=== PATIENT | female | born 1995 | race Caucasian/White ===

== ENCOUNTER 2021-12-29 08:21 | Outpatient (CLI) | payer OTHER, SELFPAY ==
--- NOTE | 2021-12-29 08:45 | CRLHL7_ITS ---
For Patients: As a result of the Century Cures Act, medical imaging exams and procedure reports are released immediately into your electronic medical record. You may view this report before your referring provider. If you have questions, please contact your health care provider. INDICATION: Evaluate anatomy. COMPARISON: 10/23/2021, 09/30/2021 TECHNIQUE: Real time koenig scale imaging of the fetus was performed as well as color Doppler analysis of the umbilical vessels. FINDINGS: Sonographic imaging demonstrates a single living intrauterine gestation. Fetus demonstrates a regular cardiac rate of 141 beats per minute. Fetus has a devon breech position. The placenta lies anteriorly. The edge of the placenta is located 12.5 cm from the internal cervical os. Amniotic fluid volume appears normal. Single deepest vertical pocket: 4.3 cm. The cervix is closed and measures 4.3 cm in length. The composite ultrasound gestational age is calculated at 20 weeks 3 days with an estimated sonographic due date of 05/15/2022. The estimated weight is 343 grams which lies at the 13th %. The following biometric measurements were obtained: Biparietal diameter: 4.6 cm/19 weeks 6 days 10th% Head circumference: 17.5 cm/20 weeks 0 days 8th% Abdominal circumference: 15.6 cm/20 weeks 5 days 34th% Femur length: 3.2 cm/19 weeks 6 days 9th% The HC/AC ratio measures: 1.12 Range (1.07-1.25) On anatomic survey, there is a normal appearance of the cerebral ventricles, cavum septi pellucidi, cisterna magna and cerebellum. The nose, lips, and facial profile appear normal. The cervical, thoracic and lumbar spine are well visualized and appear normal. There is a normal four-chamber heart view and the left and right ventricular outflow tracts appear normal. The diaphragm and stomach appear normal. The kidneys and bladder also appear normal. There is a normal three-vessel cord and there is an eccentric cord insertion site. The four extremities appear normal. IMPRESSION: Normal OB ultrasound exam with concordance of clinical and sonographic dating. No intrinsic abnormalities noted on anatomic survey. Dictated by Sushil Strong MD @ 12/29/2021 10:03:30 AM (Electronically Signed)
== END 2021-12-29 08:22 | disposition home or self-care (01) ==
LOC: US 08:22
PROVIDERS: PCP Physician Assistant Medical; Visit Provider Advanced Practice Midwife
DX: Z34.92 Encounter for supervision of normal pregnancy, unspecified, second trimester (principal); Z3A.20 20 weeks gestation of pregnancy
CPT/HCPCS: 76805

== ENCOUNTER 2022-03-04 20:43 | Outpatient (CLI) | payer OTHER, SELFPAY ==
[2022-03-06 20:38] LABS: Rapid Plasma Reagin (RPR) Non Reactive (Non Reactive)
== END 2022-03-04 20:44 | disposition home or self-care (01) ==
PROVIDERS: PCP Physician Assistant Medical; Visit Provider Advanced Practice Midwife
DX: Z34.90 Encounter for supervision of normal pregnancy, unspecified, unspecified trimester (principal)
CPT/HCPCS: 86592

== ENCOUNTER 2022-03-05 15:39 | Outpatient (CLI) | payer OTHER, SELFPAY ==
[2022-03-05 08:30] LABS: Glucose Fasting Check 72 mg/dl (60-115)
[2022-03-05 13:26] LABS: Glucose 1 Hour Gest 166 mg/dl (70-180)
[2022-03-05 13:26] LABS: Glucose GTT-Gestational 3 Hr 87 mg/dl (70-140)
== END 2022-03-05 15:40 | disposition home or self-care (01) ==
PROVIDERS: PCP Physician Assistant Medical; Visit Provider Advanced Practice Midwife
DX: Z34.90 Encounter for supervision of normal pregnancy, unspecified, unspecified trimester (principal)
CPT/HCPCS: 82951; 82952

== ENCOUNTER 2022-04-15 16:22 | Outpatient (CLI) | payer OTHER, SELFPAY ==
[2022-04-16 15:47] LABS: Strep B DNA Probe NEGATIVE (Negative)
[2022-04-18 15:43] LABS: Strep B Pen/Amox Allergy No
== END 2022-04-15 16:23 | disposition home or self-care (01) ==
LOC: NFLDREF 16:23
PROVIDERS: PCP Physician Assistant Medical; Visit Provider Advanced Practice Midwife
DX: Z34.83 Encounter for supervision of other normal pregnancy, third trimester (principal); Z3A.36 36 weeks gestation of pregnancy
CPT/HCPCS: 87081; 87653

== ENCOUNTER 2022-05-16 23:56 | Outpatient (CLI) | payer OTHER, SELFPAY ==
[2022-05-17 00:12] VITALS: BP 121/78; PULSE 79; RESP 16; TEMP 36.8; O2SAT 98
[2022-05-17 00:40] LABS: Amnisure Rom* Negative
--- NOTE | 2022-05-17 02:08 | PC.OBNST ---
NST Note NST Note Start: 05/17/22 00:09 Freq: ONCE Status: Active Protocol: Document 05/17/22 01:00 KAYE (Rec: 05/17/22 02:08 KAYE [id number]) NST Note 1 Para (# of births) 0 EDC 05/11/22 Gestational Age In Weeks & Days 40 Weeks & 6 Days Patient Presented with Complaint(s) of Leaking fluid Reactive Yes Appropriate for Gestational Age Yes HECTOR Mckeon RNC Date 05/17/22 Reactive Yes Appropriate for Gestational Age Yes HECTOR Daniels RN Date 05/17/22 OB NST charge Yes Complete NST Note via Write Note Yes The provider's electronic signature indicates the NST is reactive/appropriate for gestational age. *Note to provider: If an addendum is required, open the patient's chart and click on the note under the Nurse/Allied Health tab.
== END 2022-05-17 01:10 | disposition home or self-care (01) ==
LOC: OB OUT 23:57 → OB 23:58
PROVIDERS: PCP Physician Assistant Medical; Visit Provider Advanced Practice Midwife
DX: O47.1 False labor at or after 37 completed weeks of gestation (principal); Z3A.40 40 weeks gestation of pregnancy
CPT/HCPCS: 59025; 84112; 99213

== ENCOUNTER 2022-05-18 06:52 | Inpatient (IN) | payer OTHER, SELFPAY ==
[2022-05-18] VITALS (7 sets, daily range): BP systolic 108–127; BP diastolic 57–77; PULSE 74–96; RESP 16; TEMP 36.6–36.9; O2SAT 97–98; BMI 36.3
[2022-05-18] MEDS: miSOPROStoL 25 MCG/0.25 TABLET VAGINAL ×4 (08:37→20:55)
--- NOTE | 2022-05-18 08:37 | W.PM.LDBA ---
Subjective History of Present Illness Narrative: Patient is being admitted to Labor and Delivery for IOL at 41.0 weeks. She is a 26 year old at 41.0 weeks gestation. Her full history and physical was dictated by Joycelyn Hobbs CNM on 04/23/2022. Please see this for details. 1. BMI > 30 2. Large MARIBEL, follow-up US ordered Subchorionic hemorrhage measuring 1.5 x 1.4 x 5.2 cm Follow-up: measuring 2.8 centimeter x 1.0 centimeter x 4.0 cm Not noted on anatomy scan 3. Anxiety - Meds in college, not currently, PHQ 0/TARIK 3 @ NOB 4. Varicella non-immune, Recommend vaccine pp 5. Carpal Tunnel of , arms/hands Plans to try splinting them at night 6. Failed 1 hour gct 3 hour gct: passed OB - H&P: Exam Physical Exam: Vital signs: Temp Pulse BP Pulse Ox 98.4 F 78 127/69 98 05/18/22 07:15 05/18/22 07:26 05/18/22 07:26 05/18/22 07:24 Narrative: Vitals per EMR? Psychiatric:? Alert and oriented x3? HEENT:? Normocephalic, atraumatic? Neck:? Supple without adenopathy or thyromegaly? Lungs:? Clear to auscultation bilaterally? Heart:? Regular rate and rhythm, no murmur, rub or gallop? Abdomen:? Soft, nontender, and gravid? Extremities:? No edema or erythema? Pelvic:? SVE: 0cm/thick/high? Membrane status:? intact? presentation:? vertex by [place] ? FHT:? Moderate Variability.? Positive Accels.? No Decels. Baseline 130.? [place]:? Ctx Q7-12min per TOCO. Feel like lower abdomen cramping per pt report.? OB - Problem Based A/P Additional Plan (1) Encounter for induction of labor: Status: Acute (2) Normal first in third trimester: Status: Acute Plan ASSESSMENT:? at 41.0 weeks gestation? GBS negative? Uncomplicated ? Postterm IOL? ?? PLAN:? 1. Reviewed risks and benefits of IOL with Pitocin vs Cytotec. Pt prefers Cytotec. Pitocin to follow if needed.? 2. Candidate for analgesia of choice. Likely will desire an epidural. ? 3. Anticipate ? 4. Vaginal Cytotec every 4 hours? 5. IV placement for epidural or if condition changes per unit policy. 6. Intermittent monitoring per unit policy for Cytotec administration.? Delivery/Labor/Induction Plan Plan: induction Induction method: per misoprostol protocol
[2022-05-18 08:44] LABS: SARS PCR* Negative SARS-CoV-2 (Negative)
[2022-05-18 09:25] LABS: Basophils Absolute Auto 0.04 K/uL (0.00-0.30); Basophils Percent Auto 0.4 % (0.0-3.0); Eosinophils Absolute Auto 0.07 K/uL (0.00-0.50); Eosinophils Percent Auto 0.7 % (0.0-7.0); Hematocrit 38.8 % (33.0-51.0); Hemoglobin* 13.2 gm/dL (12.0-16.0); Immature Granulocytes Abs Auto 0.16 K/uL (0.00-0.30); Immature Granulocytes Pct Auto 1.7 %; Lymphocytes Percent Auto 17.9 % (20-44); Mean Corpuscular HGB Conc 34 gm/dL (32-36); Mean Corpuscular Hemoglobin 31 pg (26-34); Mean Corpuscular Volume 91 fL (80-100); Monocytes Percent Auto 7.8 % (0.0-11.0); Neutrophils Absolute Auto 6.77 K/uL (1.7-7.0); Neutrophils Percent Auto 71.5 % (42.0-72.0); Platelet Count* 193 K/uL (140-440); RDW Coefficient of Variation % 12.9 % (11.5-15.5); Red Blood Count 4.27 m/uL (4.00-5.20); White Blood Count* 9.48 K/uL (4.50-11.00)
[2022-05-18 09:26] LABS: Slide Review Reflex No
[2022-05-19] VITALS (62 sets, daily range): BP systolic 100–164; BP diastolic 50–84; PULSE 72–139; RESP 16–18; TEMP 36.5–37.2; O2SAT 93–100
[2022-05-19] MEDS: hydrOXYzine pamoate 25 MG CAPSULE 100 MG PO (01:24)
[2022-05-19] MEDS: MORPHINE 10 MG/ML inj IM (01:25)
[2022-05-19] MEDS: OXYTOCIN 30 unit/500 ML in NS 30 UNIT/500 ML BAG IVPB (06:12)
[2022-05-19] MEDS: LACTATED RINGERS 1000 ML 1,000 ML 125 ML IV ×2 (06:12→21:20)
--- NOTE | 2022-05-19 09:21 | PM.OBPNL ---
Subjective Time Seen by Provider: 09:00 Date Seen: 05/19/22 Narrative: Subjective:? Ramandeep is coping well with labor pain/contractions. She is currently being supported by her partner.?Reports concerns regarding: IOL feels like it is taking such a long time and wanting to meet her baby soon. Questions answered to her satisfaction. ?She would like to continue with nitrous oxide, position changes, and ambulation for comfort and pain management.?? Objective Exam: Objective: VSS, afebrile General Appearance:?Calm, cooperative. ?No acute distress. ? Psychiatric Exam: Alert and oriented, appropriate affect Abdomen: Gravid Ctx: ?Q 2-4 min apart. Mild FHTs: ?Baseline: 135 ? Variability: Moderate ? Accels: Present ? ?Decels: ?Absent SVE:deferred (/ @ 0024) Membranes: ?SROM X 9 hours Pitocin @?2 ?? Vital Signs: Last Vital Signs Temp 98.4 F 05/19/22 06:24 Pulse 81 05/19/22 09:14 Resp 16 05/19/22 06:24 BP 127/74 05/19/22 09:14 Pulse Ox 98 05/18/22 07:24 Plan Plan: Assessment:?? 26 at 41w 1d gestation?? Patient is coping well with challenges of labor/IOL.?? Labor type: Induced, Early labor? Category 1 FHR pattern.?? GBS Negative Plan:?? Continue with IOL per pitocin protocol and routine intrapartum cares as ordered.?? Patient encouraged to change positions to promote physiologic labor and .?? Candidate for analgesia of choice. Continue with Nitrous Oxide and Nonpharmacologic comfort measures per patient preference. Patient does not plan for waterbirth? Monitoring: continuous per protocol Anticipate progress to active labor and NVD. ?
[2022-05-19] MEDS: LACTATED RINGERS 1000 ML 1,000 ML 1200 ML IV ×2 (12:17→13:52)
[2022-05-19] MEDS: ROPIVACAINE 0.2% 100 ml 100 ML 12 MG EPIDURAL (12:28)
--- NOTE | 2022-05-19 12:37 | PM.ANBPRC ---
PFSH PFS Medical History History of trichotillomania Family History Mother Uterine cancer, Onset Age: 42 Social History Narrative: , non-tobacco user Smoking Status: Never smoker Meds Home Medications and Allergies Home Medications Medication Instructions Recorded Confirmed Type ferrous sulfate 325 mg (65 mg 325 mg PO QDAY 11/23/21 05/18/22 History iron) tablet omega 2-owi-lvd-fish oil 1,000 mg 1 cap PO QDAY 11/23/21 05/18/22 History (120 mg-180 mg) capsule (Fish Oil) prenat.vits,jazmine,ccp-ccxn-jbgyr 1 tab PO QDAY 11/23/21 05/18/22 History Allergies Allergy/AdvReac Type Severity Reaction Status Date / Time No Known Allergies Allergy Verified 05/19/22 01:19 Results Vital Signs Vital Signs: Last Vital Signs Temp 98.8 F 05/19/22 11:06 Pulse 110 H 05/19/22 12:35 Resp 16 05/19/22 11:06 BP 141/69 H 05/19/22 12:37 Pulse Ox 100 05/19/22 12:22 Weight: 89.981 kg Height: 157.48 cm Anesthesia Procedures Epidural Insertion Patient Location: OB Start Time: 12:15 Stop Time: 13:15 Start Date: 05/19/22 Stop Date: 05/19/22 Reason for Block: procedure for pain Patient Position: sitting Performed By: Moshe Angel Preanesthetic Checklist: IV checked, risks and benefits discussed, monitors and equipment checked, pre-op evaluation and anesthesia consent Prep: patient draped Monitoring: blood pressure monitoring, continuous pulse oximetry and heart rate Approach: midline Vertebral Space: lumbar (1-5) Epidural Technique: TISHA saline Needle Type: Tuohy needle Injection Technique: continuous catheter Needle gauge: 17 Needle Insertion Depth (cm): 6 Catheter Gauge: 19 Catheter Type: multi-orifice Catheter at skin depth (cm): 10 Test Dose Result: negative and lidocaine 1.5% with epinephrine 1 to 200,000
[2022-05-19] MEDS: PHENYLEPHRINE 100 MCG/ML SYRINGE IVP ×3 (14:08→14:52)
--- NOTE | 2022-05-19 16:03 | P.OBPN_ITS ---
Subjective Time Seen by Provider: 17:06 Date Seen: 05/19/22 Narrative: Subjective:? Ramandeep is coping well with labor pain/contractions, comfortable with epidural in bed in all 4s position with labor ball. She is currently being supported by her Forrest.?Discussed recurrent late decels and variables, how this indicates that the baby is not tolerating labor well, and that her cervix had made minimal change from 1.5 to 2cm and baby is still high and not close to delivery. E xplained options to try more position changes/turning off pit for a while, or to call MD to evaluate for . Ramandeep opted to call for a at this time, stated she wanted to make that decision while her baby was still ok and to have the safest option at this time. Questions elicited answered to Ramandeep & Forrest's satisfaction. ? ? Objective Exam: Objective: VSS, afebrile General Appearance:? Teary, tired, cooperative. ? Psychiatric Exam: Alert and oriented, appropriate affect Abdomen: Gravid Ctx: ?Q 2-4 min apart. Moderate FHTs: ?Baseline: 145 Variability: Moderate ? Accels: present ? ?Decels: ?occasional variables and repetitive late decels SVE: 2cm/50%/-3 Membranes:?SROM X 16 hours Pitocin @?12 ?? Vital Signs: Last Vital Signs Temp 99 F 05/19/22 15:03 Pulse 139 H 05/19/22 15:49 Resp 16 05/19/22 15:03 BP 138/67 05/19/22 15:49 Pulse Ox 100 05/19/22 12:22 Plan Plan: Assessment:?? 26 at 41w 1d gestation?? Patient is coping well with challenges of labor/IOL.?? Labor type: Induced, Early labor? Category 2 FHR pattern.?? GBS Negative Plan:?? Pitocin turned off Epidural for pain management Monitoring: continuous per protocol Dr. Shah called to evaluate for
--- NOTE | 2022-05-19 17:32 | PM.OBCN1 ---
OB - CN: HPI Date of Consult Time Seen by Provider: 17:32 Date Seen: 05/19/22 Patient: [facility] Patient Consult date: 05/19/22 Requesting Physician: Krystle Hobbs CNM Primary Care Provider: Rachel Aguila PA-C Consult Narrative Reason for consult: nonreassuring FHTs (repetitive late decelerations on pitocin 10 mu/min) Narrative: The patient is a 26 year old G 1 P 0 at 41 1/7 weeks gestation that was admitted to the Center on 05/18/22 for induction of labor. Her cerviz was unfavorable upon admission. She received misoprostol per protocol yesterday. She experienced spontaneous rupture of membranes around midnight, clear fluid. Pitocin augmentation of labor was initiated this morning. Has an epidural in place for pain control. Cervix was 2 cm/ 50%/ -3 station at most recent check. History of Present Dating criteria: based on LMP care: good care Ultrasounds: normal 1st trimester US and normal mid trimester US complications comment: See below. Medical Complications: OB Problem List: 1. BMI > 30 2. Large MARIBEL, follow-up US ordered Subchorionic hemorrhage measuring 1.5 x 1.4 x 5.2 cm Follow-up: measuring 2.8 centimeter x 1.0 centimeter x 4.0 cm Not noted on anatomy scan 3. Anxiety - Meds in college, not currently, PHQ 0/TARIK 3 @ NOB 4. Varicella non-immune, Recommend vaccine pp 5. Carpal Tunnel of , arms/hands Plans to try splinting them at night 6. Failed 1 hour gct 3 hour gct: passed History History 1 Elective abortions 0 Para 0 Spontaneous abortions 0 Hx # Term Pregnancies Ectopic pregnancies Hx # Pregnancies Multiple births Number of Living Children 0 Labs Blood type: O (+) positive Rubella: immune RPR/VDLR: nonreactive GBS status: negative HBsAG: negative OB Labs: Lab Assessment Start: 05/18/22 07:21 Freq: ONCE Status: Complete Protocol: PC.OBGBS Activity Type Activity Date Activity User E-sign Co-sign Detail Recorded Client Recorded Date Recorded By Document 05/18/22 07:30 BAPTISM [id number] 05/18/22 07:33 BAPTISM 05/18/22 07:30 Lab Assessment GBS negative Previous [place] with Invasive GBS No Does Patient Meet Criteria No No Treatment Needed OK Maternal Blood Type O Maternal RH Factor Positive Evaluate Maternal Rubella Immune Status Immune Hepatitis B Surface Antigen Negative Maternal HIV Status Negative Maternal Syphillis (RPR) Status Negative Are Labs Available Yes PFSH PFS Medical History History of trichotillomania Family History Mother Uterine cancer, Onset Age: 42 Social History Narrative: , non-tobacco user Smoking Status: Never smoker Meds Home Medications and Allergies Home Medications Medication Instructions Recorded Confirmed Type ferrous sulfate 325 mg (65 mg 325 mg PO QDAY 11/23/21 05/18/22 History iron) tablet omega 3-hdp-ios-fish oil 1,000 mg 1 cap PO QDAY 11/23/21 05/18/22 History (120 mg-180 mg) capsule (Fish Oil) prenat.vits,jazmine,awi-gyik-qpomr 1 tab PO QDAY 11/23/21 05/18/22 History Allergies Allergy/AdvReac Type Severity Reaction Status Date / Time No Known Allergies Allergy Verified 05/19/22 01:19 OB - H&P: Exam Physical Exam: Vital signs: Temp Pulse Resp BP Pulse Ox 99 F 129 H 16 164/84 H 100 05/19/22 15:03 05/19/22 17:19 05/19/22 15:03 05/19/22 17:19 05/19/22 12:22 Constitutional: Constitutional: no acute distress Comments: On hand/knees with beanbag Routine HEENT Exam: Head: Present normal inspection Routine Respiratory Exam: Respiratory: Absent respiratory distress Routine Cardiovascular Exam: Cardiovascular: RRR Detailed Labor and Delivery Exam: Patient Gravid: yes Dilation (cm): 2 Effacement (%): 50 Cervix position: mid Consistency: medium Contraction frequency (min): 4 Contraction duration (sec): 60 Tachysystole: No Contraction intensity: Moderate Comments: Pitocin infusion currently off. Fetus (Single): Station: -3 Amniotic Membrane Status: SROM Amniotic Membrane Fluid Description: Clear Heart Rate Baseline: 135 Monitor Decelerations: Late (repetitive) [facility] Variability: Minimal (3-5) Routine Neurological Exam: Present alert and oriented X3 OB - CN: A/P Assessment and Plan (1) Encounter for induction of labor: Status: Acute (2) Normal first in third trimester: Status: Acute (3) Non-reassuring heart rate with late deceleration: Status: Acute Plan Discussed situation with the patient. Recommend proceeding with delivery. Informed consent obtained for section, risks reviewed include, but are not limited to, infection, bleeding, blood transfusion, injury to other organs or infant, extended hospital stay and postoperative pain medications. O.R. team aware.
[2022-05-19] MEDS: CEFAZOLIN 2 GM INJ IVP (18:06)
--- NOTE | 2022-05-19 18:49 | SUR.OPER ---
Doctor declined to send specimen.
--- NOTE | 2022-05-19 19:00 | PM.OBPRCCS ---
Procedure Pre-op/Post-op diagnoses: Pre-Op/Post-Op Diagnoses Operation Date: 05/19/22 18:15 <No data on this case meets the specified criteria> Procedure Done: Global Procedure Details: Procedures Operation Date: 05/19/22 18:15 Actual Procedure Side Surgeon p Section Angela Shah MD Estimated blood loss (mL): 310 Disposition: floor Anesthesia type: TAP block Complications: None. Narrative: PREOPERATIVE DIAGNOSES: 1. Intrauterine at 41 1/7 weeks' gestation. 2. intolerance of labor. POSTOPERATIVE DIAGNOSES: 1. Intrauterine at 41 1/7 weeks' gestation. 2. intolerance of labor. NAME OF PROCEDURE: Primary low transverse section. SURGEON: Pablo. ANESTHESIA: Epidural. Tap block. COMPLICATIONS: None. ESTIMATED BLOOD LOSS: 310 mL. DRAINS: Dodd to gravity. FINDINGS: Live-born female infant, cephalic presentation, occiput posterior position, Apgars 8 and 9 at 1 and 5 minutes respectively. weight 6 lb 13 oz. thin umbilical cord. Normal appearing uterus, tubes, and ovaries. PROCEDURE: After obtaining informed consent, the patient was taken to the operating room where spinal anesthesia was obtained and found to be adequate. She was prepared and draped in the normal sterile fashion in the dorsal supine position with a leftward tilt. A Pfannenstiel skin incision was made with a scalpel. This incision was carried down to the underlying layer of fascia with the Bovie. The fascia was incised in the midline and the incision extended laterally. The superior and inferior aspects of the fascial incision were grasped with Obed clamps, elevated and the underlying rectus muscles dissected off sharply and with electrocautery. The rectus muscles were then in the midline. The Alvin O retractor was then placed into the incision. The lower uterine segment was then incised in a transverse fashion with the scalpel. Upon entry into the uterus, clear amniotic fluid was noted. The uterine incision was extended laterally with blunt finger fractionation. The 's head was delivered atraumatically, followed by the remainder of the 's body. The nose and mouth were suctioned with the bulb suction. The cord was doubly clamped and cut, and the was handed off the field for evaluation. The placenta was delivered spontaneously with umbilical cord traction and fundal massage. The uterus was cleared of all clots and debris. The uterine incision was reapproximated in a running locking fashion with a 0 chromic suture. A 2nd layer of the same suture was used to imbricate in horizontal fashion. The gutters were irrigated and suctioned. All instruments and retractors were removed. The anterior peritoneum was reapproximated in a running fashion with a 3-0 Vicryl suture. The subfascial tissues were carefully inspected and hemostasis assured. The fascia was reapproximated in a running fashion with a looped 0 Maxon suture. The subcutaneous tissues were copiously irrigated. Hemostasis was assured. The skin was closed in a subcuticular fashion with 4-0 Vicryl. LiquiBand and dressing were applied. The patient tolerated the procedure well. Sponge, lap, needle, and instrument counts were reported as correct x2. The patient was taken to the recovery room, awake, and in stable condition. She did receive 2 grams of IV Ancef preoperatively. OB Delivery Proc Additional Procedures Tubal Ligation at the time of : No
--- NOTE | 2022-05-19 19:26 | W.PM.NB ---
Nerve Block Nerve Block Time Seen by Provider: 19:00 Date Seen: 05/19/22 Type of block requested by surgeon for post-operative analgesia: TAP Side: bilateral Time out performed: Yes Verification of patient name: Yes Verification of date of : Yes Name of person performing procedure: MEG beltran Continuous monitoring Was continuous monitoring of O2 sat, B/P, air sampling and monitoring, recorded every 15 minutes?: Yes Procedure Checklist: sterile prep, needles and gloves Ultrasound guided. Images saved: Yes Medications given in 5ml increments after negative aspiration: Marcaine (30 total) %: 0.25 mL: 15 Needle gauge: 20 and Exparel (10 total) mL: 5 Needle gauge: 20 Patient tolerated procedure well: Yes Block Charges Block Charge (with Pro Fee): TAP Bilateral Use of Ultrasound Machine for Block: Yes- US Guidance/pain block
--- NOTE | 2022-05-19 20:20 | W.ANESCHARGE ---
Anesthesia Charges Start Date/Time Anesthesia Start Date: 05/19/22 Anesthesia Start Time: 17:59 Stop Date/Time Anesthesia Stop Date: 05/19/22 Anesthesia Stop Time: 19:19 Summary Emergency: Yes
[2022-05-20] VITALS (26 sets, daily range): BP systolic 105–133; BP diastolic 61–87; PULSE 74–85; RESP 16; TEMP 36.5–36.7; O2SAT 96–100
[2022-05-20] MEDS: KETOROLAC 30 MG/ML inj IVP ×4 (01:23→19:58)
[2022-05-20] MEDS: diphenhydrAMINE 50 MG/ML inj 12.5 MG IVP (01:52)
--- NOTE | 2022-05-20 07:12 | PM.OBPNL ---
Subjective Date Seen: 05/19/22 Narrative: Late documentation for 05/18/22 at 1600: Pt has received 2 doses of cytotec with the last dose being 50mg. It was decided after discussion with the patient to do a 50mg dose of cytotec after the first dose did not produce consistent or painful contractions. Tolerated well and is now annette more now but still comfortable with contractions. Will go back to 25mg for the next doses. She is due to get her next dose at 1630. Late documentation for 05/19/22 at 0545: Received notification from the RN that the pt SROM at 0024 with clear fluid. She was 1/50/-[address] It was decided at that time that we would hold the next dose of cytotec to see what her body would do as she was stating that the contractions were feeling more painful. She requested and received morphine and Vistaril shortly after SROM for sleep. Around 0500 her strip was reviewed and the contraction pattern was sporadic with contractions every 3-5 min but often coupling. The patient was feeling contractions and they were waking her up but she was still very tired from the Vistaril. Because of her contraction pattern and an unchanged SVE per RN exam, it was decided and the patient agreed to begin Pitocin. Position changes were encouraged to promote optimal position and improve her contraction pattern. The nurse was working with the patient to change positions in bed and will encourage upright positions once she is more awake. Objective Vital Signs: Last Vital Signs Temp 97.7 F 05/20/22 04:49 Pulse 78 05/20/22 04:49 Resp 16 05/20/22 06:28 BP 117/73 05/20/22 04:49 Pulse Ox 98 05/20/22 04:49 O2 Del Method 05/20/22 04:49 Contractions Contraction intensity: Moderate Assessment Station: -3 Amniotic Membrane Status: SROM Heart Rate Baseline: 135 Monitor Decelerations: Late (repetitive)
[2022-05-20 07:16] LABS: Hemoglobin* 11.4 gm/dL (12.0-16.0)
[2022-05-20] MEDS: DOCUSATE SODIUM 100 MG CAPSULE PO (07:16)
[2022-05-21] MEDS: ACETAMINOPHEN 500 MG TABLET 1000 MG PO ×2 (00:25→13:36)
[2022-05-21] MEDS: KETOROLAC 30 MG/ML inj IVP (03:19)
--- NOTE | 2022-05-21 08:28 | P.DS_ITS ---
DS: Providers Provider Date Seen: 05/21/22 Date of admission: 05/18/22 06:52 Primary care physician: Rachel Aguila PA-C Admitting Clinician: Kim Villarreal CNM Attending Physician on discharge: Melissa Flores CNM & GAYLE Stoll Date of Discharge: 05/21/22 DS: Diagnosis Discharge Diagnosis (1) care and examination immediately after delivery: Status: Acute (2) Delivery by section using transverse incision of lower segment of uterus: Status: Acute (3) Lactating mother: Status: Acute Exam Const: Vital Signs, click to edit/add: Vital Signs - 24 hr 05/20/22 09:10 05/20/22 09:00 05/20/22 10:00 Temperature 97.7 F Pulse Rate [Pulse Oximeter] 81 Respiratory Rate 16 16 16 Blood Pressure [Ri ght Arm] 111/76 Pulse Oximetry 99 Oxygen Delivery Me thod Room Air 05/20/22 13:26 05/20/22 16:19 05/20/22 18:11 Temperature 98.1 F Pulse Rate [Pulse Oximeter] 80 76 Respiratory Rate 16 16 16 Blood Pressure [Ri ght Arm] 117/74 123/87 Pulse Oximetry 96 96 Oxygen Delivery Me thod Room Air Room Air 05/20/22 17:00 05/20/22 16:00 05/20/22 15:00 Temperature Pulse Rate [Pulse Oximeter] Respiratory Rate 16 16 16 Blood Pressure [Ri ght Arm] Pulse Oximetry Oxygen Delivery Me thod 05/20/22 14:00 05/20/22 13:00 05/20/22 12:00 Temperature Pulse Rate [Pulse Oximeter] Respiratory Rate 16 16 16 Blood Pressure [Ri ght Arm] Pulse Oximetry Oxygen Delivery Me thod 05/20/22 11:00 05/20/22 19:52 05/20/22 23:58 Temperature Pulse Rate [Pulse Oximeter] 77 74 Respiratory Rate 16 16 16 Blood Pressure [Ri ght Arm] 105/61 130/80 Pulse Oximetry 97 97 Oxygen Delivery Me thod Room Air Room Air Documenting provider has reviewed patient's vital signs: yes Common normals: no apparent distress, oriented x3, healthy appearing and alert HENMT: Common normals: normocephalic Head and scalp: normocephalic Eye: Common normals: PERRL Pupil: PERRL Neck & C-Spine: Common normals: full ROM and supple Chest: Common normals: inspection of chest normal Resp: Common normals: normal respiratory effort and clear to auscultation bilaterally Auscultation: clear to auscultation bilaterally Cardio: Common normals: regular rate and regular rhythm Rate: regular rate Rhythm: regular rhythm GI: Common normals: soft to palpation Inspection: incision (Dressing removed, clean, dry, intact; glue in place) Palpation: soft : Uterus: U/U Lochia: scant Back & Pelvis: Common normals: thoracic and lumbar spine normal to inspection Extremity: Common normals: normal to inspection and full ROM Neuro: Common normals: oriented x3 Sensorium/orientation: alert Speech: speech normal Psych: Common normals: mental status grossly normal, thought process normal, speech normal and activity/motor behavior normal Speech: normal speech Thought process: normal thought process Skin: Common normals: no rashes or lesions noted General skin exam: no viry hes or lesions noted OB - DS: Summary Hospital Course Hospital Course: The patient is a 26 year old G 1 P 0 at 41 3/7 weeks gestation that was admitted to the Center on 05/18/22 for induction of labor for post-dates. She had an uncomplicated delivery. She delivered a viable female Grac e. the patient has done well. The pain is well controlled with current medications.? She has no new complaints.? Urinary output is adequate and she is voiding without difficulty.? Has a good appetite, is tolerating a general diet, is passing flatus, and has not yet had a bowel movement.? Has scant amount of rubra lochia.? She is ambulating well. She is and reports it is going well. Plans to see before discharge. Peripartum Data Procedures: Procedures Operation Date: 05/19/22 18:15 Actual Procedure Side Surgeon p Section Angela Shah MD complications: none Infant Gender: Female Infant Discharge Plan: Home Status at Discharge Functional status at discharge: independent ambulation Overall status at discharge: patient is progressing back to baseline Time Spent with Patient Time attestation: Total time spent providing and/or coordinating discharge services: Discharge Plan Discharge Disposition: Home, Self-Care Date of Admission: 05/18/22 06:52 Primary Care Provider: Rachel Aguila Condition: Stable Anticipated Discharge Date/Time: 05/21/22 12:00 Discharge Medications: New docusate sodium 100 mg Capsule 100 mg PO DAILY Qty: 90 0RF ibuprofen 600 mg Tablet 600 mg PO Q6H PRN (Reason: Pain) Qty: 60 0RF oxycodone 5 mg Tablet 5 - 10 mg PO Q4H PRN (Reason: Pain) Qty: 20 0RF acetaminophen 500 mg Tablet 1,000 mg PO Q6H PRN (Reason: Pain) Qty: 0 0RF Continued prenat.vits,jazmine,yit-pjpc-bjuid Tablet 1 tab PO QDAY ferrous sulfate 325 mg (65 mg iron) tablet 325 mg PO QDAY omega 1-ccl-cqy-fish oil [Fish Oil] 1,000 mg (120 mg-180 mg) capsule 1 cap PO QDAY Discharge Orders: Discharge Order (Routine); Ordered 05/21/22 Ordered By: Melissa Flores Additional Instructions: Discharge instructions were reviewed with the patient including signs and symptoms of infection and home going medications Lifting Restrictions: 20 pounds for 6 weeks No not submerge incision under water X 2 weeks? Nothing vaginally for 6 weeks: no tampons or intercourse Do not drive while taking narcotic pain medication(s) Off Work or School for 8 weeks 2-week visit: incision check, discuss infant feeding concerns, review control options and screen for anxiety/depression. 6-week visit for an annual exam. consultation services are available to all mothers and babies for the first year after delivery.? To make an appointment, please call [phone]. Activity Level: No Restrictions Discharge Diet: Regular Follow Up Appointments: [facility] [Provider Group] (2 week and 6 week ) Forms: MyHealth Info Instructions
[2022-05-21 08:31] VITALS: BP 122/79; PULSE 70; RESP 16; TEMP 36.6; O2SAT 100
[2022-05-21] MEDS: IBUPROFEN 600 MG TABLET PO (09:15)
[2022-05-21] MEDS: OXYCODONE 5 MG TABLET PO ×2 (09:15→13:37)
[2022-05-21] MEDS: DOCUSATE SODIUM 100 MG CAPSULE PO ×2 (09:15)
== END 2022-05-21 13:00 | disposition home or self-care (01) | DRG 788 ==
PROVIDERS: Obstetrics & Gynecology; Admitting Provider Advanced Practice Midwife; PCP Physician Assistant Medical; Visit Provider Advanced Practice Midwife
PROC: 10D00Z1 Extraction of Products of Conception, Low, Open Approach (ICD-10-PCS; CPT 59514; principal; 2022-05-19 18:00)
DX: O48.0 Post-term pregnancy (principal); O76 Abnormality in fetal heart rate and rhythm complicating labor and delivery; Z3A.41 41 weeks gestation of pregnancy; Z37.0 Single live birth
CPT/HCPCS: 01967; 01968; 36415; 59200; 64488; 76942; 85018; 85025; 86850; 86900; 86901; 87635; 94761; 99140; A9270; C9290; J0690; J1200; J1885; J2270; J2274; J2370; J2590; J2795; J3010; J3490; J7120; S0020

== ENCOUNTER 2023-09-19 16:20 | Outpatient (CLI) | payer OTHER, SELFPAY ==
[2023-09-19 23:10] LABS: Chlamydia DNA Amplified* NOT DETECTED (No Detected); GC DNA Amplified* NOT DETECTED (No Detected)
== END 2023-09-19 16:21 | disposition home or self-care (01) ==
LOC: LKVREF 16:21
PROVIDERS: PCP Physician Assistant Medical; Visit Provider Physician Assistant Medical
DX: N89.8 Other specified noninflammatory disorders of vagina (principal); Z11.3 Encounter for screening for infections with a predominantly sexual mode of transmission
CPT/HCPCS: 87491; 87591

== ENCOUNTER 2023-09-23 14:17 | Outpatient (CLI) | payer OTHER, SELFPAY | END 2023-09-23 14:18 | disposition home or self-care (01) | PROVIDERS: PCP Physician Assistant Medical; Visit Provider Physician Assistant Medical | DX: E78.00 Pure hypercholesterolemia, unspecified (principal); E66.9 Obesity, unspecified; Z68.34 Body mass index [BMI] 34.0-34.9, adult; Z13.228 Encounter for screening for other metabolic disorders; Z13.1 Encounter for screening for diabetes mellitus; Z13.29 Encounter for screening for other suspected endocrine disorder | CPT/HCPCS: 80053; 80061; 82533; 83525; 84443 ==

== ENCOUNTER 2023-12-05 16:53 | Outpatient (CLI) | payer OTHER, SELFPAY ==
--- NOTE | 2023-12-05 17:00 | CRLHL7_ITS ---
For Patients: As a result of the Century Cures Act, medical imaging exams and procedure reports are released immediately into your electronic medical record. You may view this report before your referring provider. If you have questions, please contact your health care provider. INDICATION: IUD check COMPARISON: none TECHNIQUE: 2D koenig scale and color Doppler images were acquired of the pelvis using a transabdominal and transvaginal approach. FINDINGS: Sonographic images demonstrate a normal size and smooth outer contour of the uterus. Uterus measures 7.1 cm in length by 3.4 cm in AP diameter by 5.2 cm in transverse dimension. The myometrium has a normal uniform echotexture. Fluid in the endocervical canal noted. The endometrium measures 4.3 millimeters. IUD is present in the lower uterine segment. The right ovary measures 4.8 x 3.8 x 5.0 cm in size and the left ovary measures 3.1 x 1.3 x 1.8 cm. The ovaries demonstrate normal arterial and venous blood flow on color Doppler analysis. There are no suspicious fluid collections within the cul-de-sac. Anechoic right ovarian cyst is present measuring 4.3 x 3.1 x 3.7 cm. IMPRESSION: IUD in the lower uterine segment. Associated endocervical fluid noted. Dictated by Sushil Strong MD @ 12/06/2023 9:36:14 AM (Electronically Signed)
== END 2023-12-05 16:54 | disposition home or self-care (01) ==
LOC: US 16:54
PROVIDERS: PCP Physician Assistant Medical; Visit Provider Advanced Practice Midwife
DX: Z30.431 Encounter for routine checking of intrauterine contraceptive device (principal); N93.0 Postcoital and contact bleeding
CPT/HCPCS: 76830; 76856; 93976

== ENCOUNTER 2024-02-14 16:23 | Outpatient (CLI) | payer OTHER, SELFPAY ==
--- NOTE | 2024-02-14 16:45 | CRLHL7_ITS ---
For Patients: As a result of the Century Cures Act, medical imaging exams and procedure reports are released immediately into your electronic medical record. You may view this report before your referring provider. If you have questions, please contact your health care provider. CLINICAL HISTORY: Check IUD position TECHNIQUE: 2D koenig scale and color Doppler images were acquired of the pelvis using a transvaginal approach. Comparison 12/05/2023 FINDINGS: On transvaginal imaging, the myometrium has a normal uniform echotexture. The uterus measures 8.3 x 3.4 x 4.4 cm. Normal position of the IUD within the endometrial canal. The endometrial thickness is approximately 4.8 millimeters. The left ovary measures 3.3 x 1.2 x 2.5 cm in size and the right ovary measures 3.8 x 1.9 x 2.6 cm. The ovaries demonstrate normal arterial and venous blood flow on color Doppler analysis. There are no suspicious fluid collections within the cul-de-sac. IMPRESSION: Normal position of the IUD within the endometrial canal. Dictated by Sushil Strong MD @ 02/14/2024 10:37:51 PM (Electronically Signed)
== END 2024-02-14 16:24 | disposition home or self-care (01) ==
LOC: US 16:24
PROVIDERS: PCP Physician Assistant Medical; Visit Provider Registered Nurse
DX: Z30.431 Encounter for routine checking of intrauterine contraceptive device (principal)
CPT/HCPCS: 76830

== ENCOUNTER 2025-03-15 14:01 | Outpatient (CLI) | payer OTHER, SELFPAY | END 2025-03-15 14:02 | disposition home or self-care (01) | LOC: NFLDREF 14:02 | PROVIDERS: PCP Physician Assistant Medical; Visit Provider Registered Nurse | DX: N92.6 Irregular menstruation, unspecified (principal) | CPT/HCPCS: 84443 ==